=== PATIENT | male | born 1945 | race Two or more races ===

== ENCOUNTER 2016-09-04 09:20 | Emergency (ER) | payer MEDICARE, BC ==
[~2016-09-04] VITALS: Ht 167.6 cm; Wt 69.5 kg
[2016-09-04] MEDS ORDERED: VALS1TAB24 PO (09:59)
[2016-09-04] MEDS ORDERED: EZET10TA3 PO (09:59)
[2016-09-04] MEDS ORDERED: METO25TA35 PO (09:59)
[2016-09-04] MEDS ORDERED: ASPI-515 PO (09:59)
[2016-09-04] MEDS ORDERED: ATOR40TA78 PO (09:59)
[2016-09-04 10:47] LABS: BLOOD UREA NITROGEN 13 mg/dL (7-18)
[2016-09-04 11:27] VITALS: BP 154/84
== END 2016-09-04 11:29 | disposition home or self-care (01) ==
LOC: ED 11:15
DX: N30.90 Cystitis, unspecified without hematuria (principal); I10 Essential (primary) hypertension; E78.00 Pure hypercholesterolemia, unspecified
CPT/HCPCS: 36415; 74176; 80048; 81001; 82040; 85025; 87086